=== PATIENT | male | born 1970 | race Caucasian/White ===

== ENCOUNTER 2024-01-26 19:49 | Emergency (ER) | payer MEDICAID ==
[~2024-01-26] VITALS: Ht 162.6 cm; Wt 65.5 kg
[2024-01-26 20:52] LABS: BASOPHILS % (AUTO) 0.1 % (0.0-2.0); EOSINOPHILS % (AUTO) 0.4 % (1.0-6.0); HEMATOCRIT 44.7 % (41-53); HEMOGLOBIN 15.3 g/dL (13.5-17.5); LYMPHOCYTES # (AUTO) 0.4 K/uL (1.0-4.8); LYMPHOCYTES % (AUTO) 5.4 % (22.0-44.0); MEAN CORPUSCULAR HEMOGLOBIN 30.3 pg (26.0-34.0); MEAN CORPUSCULAR HGB CONC 34.2 G/dL (31.0-37.0); MEAN CORPUSCULAR VOLUME 89 fL (80-100); MONOCYTES # (AUTO) 0.2 K/uL (0.1-1.0); MONOCYTES % (AUTO) 2.4 % (2.0-9.0); PLATELET COUNT (AUTO) 262 K/uL (150-450); RED BLOOD CELL COUNT(AUTO) 5.04 MIL/uL (4.50-5.90); RED CELL DISTRIBUTION WIDTH 13.7 % (11.5-14.5); WHITE BLOOD COUNT (AUTO) 7.6 K/uL (4.5-11.0)
[2024-01-26 20:57] LABS: NEUTROPHILS % (AUTO) 91.7 % (40.0-70.0)
[2024-01-26 21:05] LABS: ANION GAP 9 mmol/L (8-16); CALCIUM, TOTAL 8.9 mg/dL (8.8-10.5); CARBON DIOXIDE 26 mmol/L (22-29); CHLORIDE 105 mmol/L (98-107); CREATININE 0.87 mg/dL (0.60-1.30); GLOMERULAR FILTR. RATE CALC > 60 mL/min (>60); GLUCOSE,RANDOM 108 mg/dL (70-110); SODIUM SERUM 140 mmol/L (136-145); UREA NITROGEN, BLOOD 13 mg/dL (7-18)
[2024-01-26 21:12] LABS: ALANINE AMINOTRANSFERASE 31 U/L (12-78); ALKALINE PHOSPHATASE 114 U/L (46-116); ASPARTATE AMINOTRANSFERASE 19 U/L (15-37); BILIRUBIN,TOTAL 0.8 mg/dL (0.1-1.0); LIPASE 21 U/L (16-77); TOTAL PROTEIN, SERUM 7.8 g/dL (6.4-8.2)
[2024-01-26] MEDS ORDERED: ACET-3385 PO (22:43)
[2024-01-26] MEDS ORDERED: ONDA-104 PO (22:43)
[2024-01-26] MEDS: ONDANSETRON HCL 4 MG TABLET PO ONE (22:46)
[2024-01-26] MEDS: MAG HYDROX/ALUMINUM HYD/SIMETH 30 ML SUSPENSION UDCUP PO ONE (22:46)
[2024-01-26] MEDS: ACETAMINOPHEN 500 MG TABLET PO ONE (22:46)
[2024-01-26] MEDS: FAMOTIDINE 20 MG TABLET PO ONE (22:46)
[2024-01-26 23:15] VITALS: BP 120/68; PULSE 68; RESP 18; TEMP 98.6
== END 2024-01-26 23:17 | disposition home or self-care (01) ==
LOC: EMS 20:13
DX: R11.2 Nausea with vomiting, unspecified (principal); N20.9 Urinary calculus, unspecified
CPT/HCPCS: 99284; 80053; 83690; 85025; 36415; Q0162

== ENCOUNTER → 2024-01-28 | Emergency (ER) | payer MEDICAID ==
[~2024-01-28] MED LIST: ACET-3385 PO; ONDA-104 PO
== END | disposition still patient (30) ==
LOC: EMS 11:42
DX: Z53.21 Procedure and treatment not carried out due to patient leaving prior to being seen by health care provider (principal)